=== PATIENT | male | born 1970 | race African-American/Black ===

== ENCOUNTER 2025-02-22 14:36 | Inpatient (IN) | payer OTHER ==
[2025-02-22 16:40] LABS: ABSOLUTE IMMATURE GRANULOCYTES 0.06 x10^3/uL (0.0-0.031); BASOPHILS # 0.02 x10^3/uL (0.01-0.08); EOSINOPHILS # 0.07 x10^3/uL (0.04-0.54); HEMATOCRIT 22.9 % (40.1-51.0); HEMOGLOBIN 7.1 g/dL (13.7-17.5); MEAN CELL VOLUME 88.8 fl (79.0-92.2); MEAN PLT VOLUME 9.9 fl (9.4-12.4); MONOCYTE # 0.25 x10^3/uL (0.30-0.82); MONOCYTE % 3.6 % (5.3-12.2); PLATELET COUNT 243 x10^3/uL (163-337)
[2025-02-22 17:02] LABS: ALBUMIN 1.4 g/dl (3.4-5.0); BLOOD UREA NITROGEN 65.2 mg/dL (7-18)
[2025-02-22 17:05] LABS: CREATININE 4.2 mg/dL (0.55-1.3)
[2025-02-22 17:14] LABS: BILIRUBIN,TOTAL 0.1 mg/dL (0.2-1)
[2025-02-22 18:31] LABS: HEMATOCRIT 22.4 % (40.1-51.0); MCHC 31.3 g/dl (32.3-36.5); MEAN CELL VOLUME 88.5 fl (79.0-92.2); MEAN PLT VOLUME 9.5 fl (9.4-12.4); PLATELET COUNT 243 x10^3/uL (163-337)
[2025-02-22] MEDS ORDERED: VANCOMYCIN 1 GM PREMIX (F) 1 GM/200 ML BAG ONE (18:35)
[2025-02-22] MEDS: VANCOMYCIN 1,000 MG in DEXTROSE 5%-WATER - 250 ML IVPB ONE (18:55)
[2025-02-22] MEDS: NICOTINE POLACRILEX 4 MG GUM BUC PRN (21:56)
[2025-02-23] MEDS ORDERED: LORazepam 1 MG TABLET PO PRN (03:14)
[2025-02-23] MEDS ORDERED: ACETAMINOPHEN 325 MG TABLET (FP) PO PRN (03:17)
[2025-02-23] MEDS ORDERED: NALOXONE HCL 0.4 MG/ML VIAL IVPUSH PRN (03:17)
[2025-02-23] MEDS: FUROSEMIDE 40 MG/4 ML INJECTABLE VIAL IVPUSH ONE (03:41)
[2025-02-23] MEDS: LORazepam 2 MG/ML SDV VIAL IVPUSH ONE (03:41)
[2025-02-23] MEDS: LORazepam 2 MG TABLET PO SCH (04:23)
[2025-02-23 09:50] LABS: ABSOLUTE IMMATURE GRANULOCYTES 0.04 x10^3/uL (0.0-0.031); BASOPHILS # 0.03 x10^3/uL (0.01-0.08); EOSINOPHIL % 1.8 % (0.8-7.0); EOSINOPHILS # 0.12 x10^3/uL (0.04-0.54); HEMATOCRIT 25.8 % (40.1-51.0); HEMOGLOBIN 7.9 g/dL (13.7-17.5); MCHC 30.6 g/dl (32.3-36.5); MEAN CELL VOLUME 89.6 fl (79.0-92.2); MEAN PLT VOLUME 9.8 fl (9.4-12.4); MONOCYTE # 0.28 x10^3/uL (0.30-0.82); MONOCYTE % 4.1 % (5.3-12.2); PLATELET COUNT 276 x10^3/uL (163-337); RDW 13.1 % (12.2-16.1)
[2025-02-23 10:11] LABS: POTASSIUM 4.4 mmol/L (3.5-5.1)
[2025-02-23 10:15] LABS: ALBUMIN 1.3 g/dl (3.4-5.0); CALCIUM 7.8 mg/dL (8.5-10.1)
[2025-02-23 10:17] LABS: BLOOD UREA NITROGEN 58.5 mg/dL (7-18)
[2025-02-23 10:19] LABS: BILIRUBIN,TOTAL 0.3 mg/dL (0.2-1); CREATININE 4.5 mg/dL (0.55-1.3); TOT PROT 7.3 g/dl (6.4-8.2)
[2025-02-23] MEDS: LORazepam 1 MG TABLET PO SCH (10:59)
[2025-02-23] MEDS: FOLIC ACID 1 MG TABLET (FP) PO SCH (10:59)
[2025-02-23] MEDS: THIAMINE 100 MG TABLET PO SCH (10:59)
[2025-02-23] MEDS: NAPH,MB-DB/K PH,MBDB POWDER PACKET PO SCH (11:13)
[2025-02-23 11:55] LABS: URINE APPEARANCE CLEAR; URINE BILIRUBIN NEGATIVE (NEGATIVE); URINE COLOR YELLOW; URINE GLUCOSE (UA) NEGATIVE (NEGATIVE); URINE KETONE NEGATIVE (NEGATIVE); URINE LEUK ESTERASE NEGATIVE (NEGATIVE); URINE NITRITE NEGATIVE (NEGATIVE); URINE PROTEIN TRACE (NEGATIVE); URINE UROBILINOGEN 0.2 mg/dL (0.2-1.0)
[2025-02-23 15:51] LABS: HEMATOCRIT 25.4 % (40.1-51.0); HEMOGLOBIN 8.1 g/dL (13.7-17.5); MCHC 31.9 g/dl (32.3-36.5); MEAN CELL VOLUME 88.2 fl (79.0-92.2); MEAN PLT VOLUME 9.5 fl (9.4-12.4); PLATELET COUNT 253 x10^3/uL (163-337); RDW 13.2 % (12.2-16.1)
[2025-02-23] MEDS: FUROSEMIDE 40 MG/4 ML INJECTABLE VIAL IVPUSH SCH (16:55)
[2025-02-23] MEDS: BUPRENORPHINE/NALOXONE 2 MG/0.5 MG FILM PACKET SL ONE (22:34)
[2025-02-23] MEDS: LABETALOL HCL 100 MG TABLET (FP) PO SCH (22:34)
[2025-02-24] MEDS: VANCOMYCIN/WATER FOR INJ (PEG) 1,000 MG/200 ML BAG IVPB ONE (02:50)
[2025-02-24] MEDS: LORazepam 1 MG TABLET PO SCH (06:33)
[2025-02-24 07:47] LABS: HEMATOCRIT 23.4 % (40.1-51.0); HEMOGLOBIN 7.3 g/dL (13.7-17.5); MCHC 31.2 g/dl (32.3-36.5); MEAN CELL VOLUME 87.6 fl (79.0-92.2); MEAN PLT VOLUME 9.5 fl (9.4-12.4); PLATELET COUNT 257 x10^3/uL (163-337); RDW 13.6 % (12.2-16.1)
[2025-02-24 08:10] LABS: POTASSIUM 4.9 mmol/L (3.5-5.1)
[2025-02-24 08:24] LABS: ALBUMIN 1.3 g/dl (3.4-5.0); BLOOD UREA NITROGEN 62.6 mg/dL (7-18); CALCIUM 8.1 mg/dL (8.5-10.1); MAGNESIUM 2.1 mg/dL (1.8-2.4)
[2025-02-24 08:27] LABS: CREATININE 4.3 mg/dL (0.55-1.3); PHOSPHOROUS 2.6 mg/dL (2.5-4.9)
[2025-02-24 08:29] LABS: BILIRUBIN,TOTAL 0.5 mg/dL (0.2-1); TOT PROT 7.3 g/dl (6.4-8.2)
[2025-02-24] MEDS: HEPARIN NA (PORCINE) 5,000 UNITS/ML 1ML VIAL SQ SCH (08:43)
[2025-02-24] MEDS: BUPRENORPHINE/NALOXONE 2 MG/0.5 MG FILM PACKET SL ONE (10:02)
[2025-02-24] MEDS: methaDONE HCL 10 MG TABLET PO ONE (10:04)
[2025-02-24] MEDS: AMINO ACIDS/PROTEIN HYDROLYS 30 ML LIQUID.PKT PO SCH (12:08)
[2025-02-24] MEDS: DOXYCYCLINE HYCLATE 100 MG CAPSULE PO SCH (12:12)
[2025-02-24] MEDS: PERMETHRIN (NIX CREAM SCALP RINSE) 59 ML 1% BOTTLE TP ONE (12:13)
[2025-02-24] MEDS: AMOX TR/POT CLAV 250MG/125MG TABLETS PO SCH (17:40)
[2025-02-24] MEDS: BUPRENORPHINE/NALOXONE 8 MG/2 MG FILM PACKET SL ONE (22:11)
[2025-02-25] MEDS ORDERED: LORazepam 0.5 MG TABLET PO PRN
[2025-02-25] MEDS: LORazepam 0.5 MG TABLET PO SCH (05:05)
[2025-02-25 08:08] VITALS: RESP 18
[2025-02-25 08:48] LABS: ABSOLUTE IMMATURE GRANULOCYTES 0.03 x10^3/uL (0.0-0.031); BASOPHILS # 0.04 x10^3/uL (0.01-0.08); EOSINOPHIL % 1.6 % (0.8-7.0); HEMATOCRIT 23.5 % (40.1-51.0); HEMOGLOBIN 7.4 g/dL (13.7-17.5); MCHC 31.5 g/dl (32.3-36.5); MEAN PLT VOLUME 9.7 fl (9.4-12.4); MONOCYTE # 0.41 x10^3/uL (0.30-0.82); MONOCYTE % 6.6 % (5.3-12.2); PLATELET COUNT 281 x10^3/uL (163-337); RDW 13.5 % (12.2-16.1)
[2025-02-25 09:05] LABS: POTASSIUM 5.3 mmol/L (3.5-5.1)
[2025-02-25 09:08] LABS: ALBUMIN 1.4 g/dl (3.4-5.0)
[2025-02-25 09:09] LABS: BLOOD UREA NITROGEN 68.2 mg/dL (7-18); CALCIUM 8.2 mg/dL (8.5-10.1); MAGNESIUM 1.8 mg/dL (1.8-2.4)
[2025-02-25 09:12] LABS: CREATININE 4.6 mg/dL (0.55-1.3)
[2025-02-25 09:13] LABS: PHOSPHOROUS 4.8 mg/dL (2.5-4.9)
[2025-02-25 09:14] LABS: BILIRUBIN,TOTAL 0.3 mg/dL (0.2-1); TOT PROT 7.4 g/dl (6.4-8.2)
[2025-02-25] MEDS: BUPRENORPHINE/NALOXONE 8 MG/2 MG FILM PACKET SL SCH (09:31)
[2025-02-25] MEDS: SODIUM ZIRCONIUM CYCLOSILICATE (LOKELMA) 5 GM PACKET PO SCH (22:27)
[2025-02-26] MEDS: LORazepam 0.5 MG TABLET PO ONE (05:22)
[2025-02-26 10:34] LABS: HEMATOCRIT 23.3 % (40.1-51.0); HEMOGLOBIN 7.4 g/dL (13.7-17.5); MCHC 31.8 g/dl (32.3-36.5); MEAN CELL VOLUME 88.6 fl (79.0-92.2); MEAN PLT VOLUME 9.3 fl (9.4-12.4); PLATELET COUNT 325 x10^3/uL (163-337); RDW 13.2 % (12.2-16.1)
[2025-02-26 10:52] LABS: POTASSIUM 4.5 mmol/L (3.5-5.1)
[2025-02-26 10:53] LABS: CALCIUM 8.3 mg/dL (8.5-10.1)
[2025-02-26 10:54] LABS: BLOOD UREA NITROGEN 65.1 mg/dL (7-18); MAGNESIUM 1.7 mg/dL (1.8-2.4)
[2025-02-26 10:55] LABS: ALBUMIN 1.4 g/dl (3.4-5.0)
[2025-02-26 10:57] LABS: CREATININE 4.5 mg/dL (0.55-1.3); PHOSPHOROUS 4.8 mg/dL (2.5-4.9)
[2025-02-26 10:58] LABS: BILIRUBIN,TOTAL 0.2 mg/dL (0.2-1)
[2025-02-26 10:59] LABS: TOT PROT 7.8 g/dl (6.4-8.2)
[2025-02-26] MEDS: MAGNESIUM OXIDE 400 MG TABLET (FP) PO ONE (12:44)
[2025-02-27] MEDS: MAGNESIUM SULFATE IN WATER 2 GM/50 ML IVPB IVPB ONE (09:34)
[2025-02-27] MEDS: BUPRENORPHINE/NALOXONE 8 MG/2 MG FILM PACKET SL SCH (15:16)
[2025-02-28 00:03] VITALS: BMI 22.5
[2025-02-28 08:38] LABS: HEMATOCRIT 22.8 % (40.1-51.0); MCHC 30.7 g/dl (32.3-36.5); MEAN CELL VOLUME 88.7 fl (79.0-92.2); MEAN PLT VOLUME 9.1 fl (9.4-12.4); PLATELET COUNT 309 x10^3/uL (163-337); RDW 13.1 % (12.2-16.1)
[2025-02-28 09:15] LABS: CALCIUM 8.6 mg/dL (8.5-10.1)
[2025-02-28 09:16] LABS: MAGNESIUM 2.2 mg/dL (1.8-2.4)
[2025-02-28 09:19] LABS: ALBUMIN 1.5 g/dl (3.4-5.0); CREATININE 3.9 mg/dL (0.55-1.3); PHOSPHOROUS 5.1 mg/dL (2.5-4.9)
[2025-02-28 09:20] LABS: BILIRUBIN,TOTAL 0.2 mg/dL (0.2-1); TOT PROT 7.7 g/dl (6.4-8.2)
[2025-02-28 09:22] LABS: BLOOD UREA NITROGEN 62.4 mg/dL (7-18)
[2025-02-28] MEDS ORDERED: FUROSEMIDE 40 MG/4 ML INJECTABLE VIAL IVPUSH SCH (10:00)
[2025-02-28] MEDS: FUROSEMIDE 40 MG TABLET (FP) PO SCH (10:30)
[2025-02-28 14:20] VITALS: BP 108/72; PULSE 81; TEMP 99
== END 2025-02-28 14:52 | disposition short-term general hospital (02) | DRG 470 ==
LOC: JER 14:36 → JERBED 18:39 → J6S 19:38
PROVIDERS: ADMIT Student in an Organized Health Care Education/Training Program; ATTEND Internal Medicine
DX: I12.9 Hypertensive chronic kidney disease with stage 1 through stage 4 chronic kidney disease, or unspecified chronic kidney disease (principal); N18.4 Chronic kidney disease, stage 4 (severe); N17.9 Acute kidney failure, unspecified; L03.115 Cellulitis of right lower limb; F10.239 Alcohol dependence with withdrawal, unspecified; F11.20 Opioid dependence, uncomplicated; E88.09 Other disorders of plasma-protein metabolism, not elsewhere classified; Z59.00 Homelessness unspecified; B85.0 Pediculosis due to Pediculus humanus capitis; F17.210 Nicotine dependence, cigarettes, uncomplicated; L97.828 Non-pressure chronic ulcer of other part of left lower leg with other specified severity; D63.1 Anemia in chronic kidney disease; F32.A Depression, unspecified; E43 Unspecified severe protein-calorie malnutrition; Z68.22 Body mass index [BMI] 22.0-22.9, adult; Z86.19 Personal history of other infectious and parasitic diseases
CPT/HCPCS: 36415; 36430; 73610-TC-RT-FY; 73630-TC-RT-FY; 76775-TC; 80053; 81003; 82570; 82728; 82962; 83036; 83540; 83550; 83735; 83880; 84100; 84300; 84484; 85025; 85027; 85651; 86140; 86803; 86850; 86900; 86901; 86922; 87040; 87070; 87186; 87205; 87522; 93005; 93010; 93306-TC; 97116-GP; 97162-GP; 99285-25; G0480; P9058

== ENCOUNTER 2025-03-16 15:07 | Emergency (ER) | payer OTHER ==
[2025-03-16 15:12] VITALS: BMI 25.8
[2025-03-16 16:16] LABS: ABSOLUTE IMMATURE GRANULOCYTES 0.05 x10^3/uL (0.0-0.031); BASOPHILS # 0.06 x10^3/uL (0.01-0.08); EOSINOPHIL % 2.5 % (0.8-7.0); EOSINOPHILS # 0.16 x10^3/uL (0.04-0.54); HEMATOCRIT 20.6 % (40.1-51.0); HEMOGLOBIN 6.3 g/dL (13.7-17.5); MCHC 30.6 g/dl (32.3-36.5); MEAN CELL VOLUME 93.2 fl (79.0-92.2); MONOCYTE # 0.96 x10^3/uL (0.30-0.82); MONOCYTE % 14.7 % (5.3-12.2); PLATELET COUNT 312 x10^3/uL (163-337); RDW 16.4 % (12.2-16.1)
[2025-03-16 16:36] LABS: CALCIUM 8.5 mg/dL (8.5-10.1)
[2025-03-16 16:37] LABS: BLOOD UREA NITROGEN 32.7 mg/dL (7-18)
[2025-03-16 16:40] LABS: CREATININE 3.2 mg/dL (0.55-1.3)
[2025-03-16 16:42] LABS: BILIRUBIN,TOTAL 0.2 mg/dL (0.2-1)
[2025-03-16 16:44] LABS: TOT PROT 8.1 g/dl (6.4-8.2)
[2025-03-16 20:43] VITALS: BP 135/71; PULSE 96; RESP 18; TEMP 99.7
== END 2025-03-16 20:48 | disposition home or self-care (01) ==
LOC: JER 15:07
DX: D64.9 Anemia, unspecified (principal)
CPT/HCPCS: 36415; 36430; 80053; 83735; 85025; 86850; 86900; 86901; 86922; 99285-25; P9058